=== PATIENT | male | born 1955 | race Caucasian/White ===

== ENCOUNTER → 2023-11-13 13:53 | Outpatient (REF) | payer MEDICARE, OTHER, SELFPAY ==
[2023-11-13 15:01] LABS: ALT (SGPT) 32 U/L (0-50); AST (SGOT) 31 U/L (17-59); Albumin 4.5 g/dl (3.5-5.0); Alkaline Phosphatase 47 U/L (38-126); Direct Bilirubin 0.1 mg/dl (0.0-0.4); Iron 134 ug/dl (49-181); Total Bilirubin 0.8 mg/dl (0.2-1.3); Total Protein 6.6 g/dl (6.3-8.2)
[2023-11-13 15:10] LABS: Percent Saturation 52 % (20-50); Total Iron Binding Capacity 257 ug/dl (261-462)
[2023-11-13 16:06] LABS: Folate 13.6 ng/ml (2.76-20); Vitamin B12 807 pg/ml (239-931)
[2023-11-13 16:56] LABS: % Basophils 0.5 % (0-2); % Eosinophils 1.4 % (0-6); % Immature Granulocytes 0.4 % (0-0.5); % Lymphocytes 31.9 % (20.5-51.1); % Monocytes 9.7 % (1.7-9.3); % Neutrophils 56.1 % (42.2-75.2); Absolute Eosinophils 0.1 10^3/uL (0-0.7); Absolute Lymphocytes 2.6 10^3/uL (1.2-3.4); Absolute Monocytes 0.8 10^3/uL (0.1-0.6); Absolute Neutrophils 4.5 10^3/uL (1.4-6.5); Hematocrit 43.4 % (39.0-52.0); Mean Corp Hgb Conc. 34.6 g/dL (33.0-37.0); Mean Corpuscular Hgb 32.1 pg (27.0-31.0); Mean Corpuscular Volume 92.9 fL (80.0-94.0); Mean Platelet Volume 13.8 fL (7.4-10.4); Nucleated Red Blood Cells % 0 % (-); Red Blood Cell Count 4.67 10^6/uL (4.70-6.10); White Blood Cell Count 8.1 10^3/uL (4.8-10.8)
[2023-11-13 16:57] LABS: Platelet Count 92 10^3/uL (130-400)
[2023-11-16 05:25] LABS: ANA, IgG Reflex to HEp-2 None Detected (None Detected)
== END ==
LOC: REG 13:53
PROVIDERS: ATTENDING PHYSICIAN Nurse Practitioner Adult Health; FAMILY PHYSICIAN Physician Assistant Medical
DX: R53.82 Chronic fatigue, unspecified (principal); D69.6 Thrombocytopenia, unspecified
CPT/HCPCS: 36415; 80076; 82607; 82728; 82746; 83540; 83550; 85025; 86038

== ENCOUNTER → 2023-12-09 10:48 | Outpatient (REF) | payer MEDICARE, OTHER, SELFPAY | LOC: RAD 10:48 | PROVIDERS: ATTENDING PHYSICIAN Nurse Practitioner Adult Health; FAMILY PHYSICIAN Physician Assistant Medical | DX: R53.82 Chronic fatigue, unspecified (principal); D69.6 Thrombocytopenia, unspecified | CPT/HCPCS: 76705 ==

== ENCOUNTER 2024-07-18 19:13 | Inpatient (IN) | payer MEDICARE, OTHER, SELFPAY ==
[2024-07-18 13:15] VITALS: BP 154/81
[2024-07-18 15:35] VITALS: BP 147/89
--- NOTE | 2024-07-18 16:06 | ED.GENMED ---
History of Present Illness
General
Chief Complaint: Swelling
Source: patient
Time Seen by Provider: 07/18/24 15:45
History of Present Illness
History of Present Illness:
69-year-old male presents to the emergency room complaining of pain and swelling in his right leg. Patient states that he has been experiencing some discomfort in this leg for a couple weeks since using a new exercise equipment. Over the past
several days however he has been experiencing significant swelling and discomfort. He denies any chest pain or shortness of breath. Patient states he was told he had venous insufficiency in this leg previously but denies any history of clots. He
denies any surgical procedures to this leg. He did have a knee arthroscopy performed on the left knee. Patient takes medication for high cholesterol but denies any other medical history. He was told he had low platelets at 1 point and had 'a
workup' which showed no significant issues.
Past History
Past History
ED Past Medical History: Hypercholesterolemia
ED Past Surgical History: Orthopedic (Arthroscopic surgery left knee)
Phy Exam
Physical Exam
Physical Exam:
General: Awake, Alert, Oriented X3. No acute distress.
Vitals: unremarkable
Head: Atraumatic
Eyes: Pupils equal, EOMI
Throat: Airway intact, no exudates
Neck: Trachea midline
Lungs: Clear and equal b/l
Heart: Regular rate, no murmurs
Abd: Soft, Nontender, No pulsatile mass
Neuro: Nonfocal
Skin: Warm, dry, no rash
Extremities: Significant swelling and slightly bluish discoloration right lower extremity extending up to the thigh. Swelling is nonpitting. He does have some discomfort to palpation. There are varicosities noted throughout the right lower
extremity. Capillary refill is delayed in the toes. Strong DP and PT pulses are palpable. Left lower extremity appears normal.
Scores
Heart Failure Risk
Heart Failure Risk Score: Not Applicable
Course
Orders/Labs/Results
Orders:
Orders
07/18/24 13:18
US Legs, Right [US Periph Venous LOWER Ext RT] Urgent
Comment:
Reason For Exam: swelling
07/18/24 16:05
CT Angio Abd/Pelvis w/wo IV [CT Abd/pelvis Angio W/wo Iv] Urgent
Comment:
Reason For Exam: venous phase, eval extent of dvt from r leg
07/18/24 16:13
Complete Blood Count/With Diff Urgent
Comprehensive Metabolic Panel Urgent
PTT Urgent
Prothrombin Time Urgent
07/18/24 16:54
Heparin Protocol- PTT Orders As Directed
PTT per Heparin protocol: -Obtain CBC and baseline PTT - if not already collected.
-Obtain PTT 6 hours from start of infusion. Then, every 6 hours until 2 consecutive
PTT's are therapeutic. Then, PTT Daily.
-With each rate change, obtain PTT every 6 hours until 2 consecutive PTT's are
therapeutic. Then, PTT Daily.
Above order entered?: Yes
Notify MD As Directed
Notify physician if: PTT is greater than or equal to 200.
07/18/24 16:59
Heparin 4,000 units IV PRN PRN
Heparin 8,000 units IV PRN PRN
07/18/24 17:00
Heparin 67473 Units/250 ml 25,000 units in 250 ml IV PER PROTOCOL
Weight to be used for heparin protocol in kilograms (kg):: 100.3
Protocol:: DVT/PE
PTT Goal Range to be used:: PTT 73 to 111 seconds
Order type:: Initial
INITIAL Infusion Dose (UNITS/KG/hr) & then follow protocol:: 18 units/kg/hr
Infusion Dose in UNITS/hr & then follow protocol (UNITS/hr):: 1,800
INFUSION RATE in mL/hr & then follow protocol (mL/hr):: 18
For DVT/PE algorithm, re-bolus for low PTT?: Yes
PTT less than or equal to 64 seconds:: Re-bolus 80 units/kg (max 10,000units). Increase by 400 units/hr
(+ 4mL/hr)
PTT 64.1 to 72.9 seconds:: Re-bolus 40 units/kg (max 5,000 units). Increase by 200 units/hr
(+ 2mL/hr)
PTT 73 to 111 seconds:: Target Range. No change in rate.
PTT 111.1 to 130.9 seconds:: Decrease rate by 200 units/hr (- 2 mL/hr)
PTT 131 to 199.9 seconds:: HOLD for 1 hr. Then decrease by 300 units/hr (- 3mL/hr)
PTT greater than or equal to 200 seconds:: HOLD for 2 hrs & Notify Provider. Then decrease by 400 units/hr
(- 4mL/hr)
Lab follow-up:: Each change, PTT q6h until 2 consecutive are therapeutic. Then
PTT daily.
07/18/24 18:13
Admit/Transfer Patient As Directed
Co-Sign Provider:
Level of Care: Inpatient admission
Assign to:: Medical/Surgical
Physician / Group: johnna zambrano
Diagnosis: provoked DVT RLE
Reason for Hospitalization: provoked DVT RLE
Expected length of stay greater than two midnights?: Yes
ELOS- Estimated Length of Stay in days: 4
I certify the patient meets the requirements for IP care: Yes
Code Status As Directed
Resuscitation Status: Full Code
07/18/24 18:17
PRN Pain Medication Management As Directed
May give lesser potent ordered pain med per pt: Yes
preference::
Protocol:: Medication orders for pain may be administered in a
manner that supports deferring to patient preference
when the pt is:
- Requesting an ordered lesser potent pain medication.
Least to most potent pain medications are defined
as: acetaminophen < NSAID < tramadol < opioids
(morphine, oxycodone, hydromorphone).
- Requesting a lesser dose of the same medication IF
ORDERED.
- Requesting a less intrusive route of administration
if both routes are prescribed by the provider (PO <
IV).
07/18/24 23:36
PTT Urgent
07/20/24 06:00
Complete Blood Count/No Diff Q2D
Comment: Notify MD if platelet count is <130,000 or decreases by 50% from baseline
07/22/24 06:00
Complete Blood Count/No Diff Q2D
Comment: Notify MD if platelet count is <130,000 or decreases by 50% from baseline
07/24/24 06:00
Complete Blood Count/No Diff Q2D
Comment: Notify MD if platelet count is <130,000 or decreases by 50% from baseline
07/26/24 06:00
Complete Blood Count/No Diff Q2D
Comment: Notify MD if platelet count is <130,000 or decreases by 50% from baseline
07/28/24 06:00
Complete Blood Count/No Diff Q2D
Comment: Notify MD if platelet count is <130,000 or decreases by 50% from baseline
07/30/24 06:00
Complete Blood Count/No Diff Q2D
Comment: Notify MD if platelet count is <130,000 or decreases by 50% from baseline
08/01/24 06:00
Complete Blood Count/No Diff Q2D
Comment: Notify MD if platelet count is <130,000 or decreases by 50% from baseline
08/03/24 06:00
Complete Blood Count/No Diff Q2D
Comment: Notify MD if platelet count is <130,000 or decreases by 50% from baseline
Abnormal Lab Results
07/18/24
16:13
MCH 31.2 H pg
(27.0-31.0)
Plt Count 76 L 10^3/uL
(130-400)
Absolute Monos (auto) 0.9 H 10^3/uL
(0.1-0.6)
Monocytes % 11.8 H %
(1.7-9.3)
Glucose 108 H mg/dl
(70-99)
Albumin 5.2 H g/dl
(3.5-5.0)
07/18/24 16:13
07/18/24 16:13
Vital Signs
Initial and Last Documented VS:
Initial Vital Signs
Temp Pulse Resp BP Pulse Ox
98.3 F 72 18 154/81 98
07/18/24 13:15 07/18/24 13:15 07/18/24 13:15 07/18/24 13:15 07/18/24 13:15
Last Documented Vital Signs
Temp Pulse Resp BP Pulse Ox
98.2 F 78 18 144/81 98
07/18/24 18:50 07/18/24 18:50 07/18/24 18:50 07/18/24 18:50 07/18/24 18:50
MDM/Problems Addressed
Differential Diagnosis Includes:
DVT, venous insufficiency, cellulitis
MDM/Problems Addressed:
Patient presents with significant swelling, discomfort right lower extremity. No specific injury. Patient has been told he has venous insufficiency of that leg. He does not take any oral anticoagulants. Patient denies any chest pain or shortness
of breath. Ultrasound confirms the presence of lower extremity DVT. Given the extensive nature of the clot burden, the significant swelling and somewhat discoloration of his right lower extremity vascular surgery consultation was obtained. They
recommend a CT venogram which was ordered. They recommend heparin for now pending the rest of his workup. Patient will be admitted to the hospitalist service. Labs will see the count of 76. He does have a history of thrombocytopenia without any
clear cause and this has been present for many years. Given his acute clot it is necessary to provide anticoagulatio with heparin for now.
*Radiology
Radiology exam reviewed: radiology read reviewed
*Pulse Oximetry
Patient hypoxic: no
*Critical Care Note
Total Time (30-74mins, 75-104mins- exclusive of procedures): 33 min
comment:
Critical care statement: A total of 33 minutes of critical care time was provided for this patient. This includes management of unstable vital signs, evaluation of the patient at bedside, reviewing the patient's pertinent medical records, discussion
with consultants, review of old EKGs and review of pertinent medical records. This time with separate from time utilized to perform the aforementioned documented procedures
ED Attending Note
-
Portions of this chart may have been created with voice recognition software.� Occasional wrong word or��sound alike� substitutions may have occurred due to the inherent limitations of voice recognition software.
Discharge Plan
Departure
Patient Disposition: Admit
Date of Disposition: 07/18/24
Time of Disposition: 17:34
Admit to: Med/Surg
Presentation/result/management discussed w/ accepting MD/DO: Hospitalist
Condition: Fair
Discharge Problem:
Acute deep vein thrombosis (DVT) of right lower extremity
Interventions
Interventions:
*Risk Screen - Suicide Last Done: 07/18/24 17:50
*General Assessment Last Done: 07/18/24 13:15
*Neglect/Abuse Screening Last Done: 07/18/24 17:50
*ED COVID-19 Vaccine History Last Done: 07/18/24 18:51
ED- Cardiac Assessment Last Done: 07/18/24 17:47
ED- Pulmonary Assessment Last Done: 07/18/24 17:47
ED-Skin Assessment Last Done: 07/18/24 17:48
--- NOTE | 2024-07-18 16:27 | CON.VAS ---
Addendum entered and electronically signed by Adam Sow III, MD 07/19/24 10:04:
This patient was seen and examined in collaboration with CHAPO Harrington. I agree with the history and physical exam as well as the assessment and plan. I have the following additions:
Active 69-year-old male
Chronic thrombocytopenia, previously evaluated by hematology
Extensive right lower extremity DVT involving popliteal, femoral, common femoral and external iliac veins
Symptomatic with diffuse right lower extremity swelling and discomfort
Discussed options at length with patient including anticoagulation alone versus pharmacologic thrombolysis initiation versus mechanical thrombectomy. I expressed my concerns for elevated bleeding risk with pharmacologic thrombolysis given chronic
thrombocytopenia and if intervention performed would prefer mechanical thrombectomy. The technical aspects of this procedure were discussed with him in detail. The benefits and rationale for this approach were discussed with him in detail.
Operative risks were discussed with him in detail including but not limited to bleeding, access site injury, infection, inability to successfully clear thrombus, distal embolization/pulmonary embolism, chronic lower extremity swelling and the need
for additional procedures. I was also clear with him that regardless of the strategy employed he would need a course of systemic anticoagulation and a repeat evaluation from hematology.
He expressed a clear understanding of our conversation and agrees to proceed with surgery (mechanical venous thrombectomy) as detailed above.
Continue heparin drip. Will plan for OR this afternoon.
Signed:
Adam Sow III, MD
Vascular Surgery
[facility]
Original Note:
Consultation
Consultation Request
Date/Time Consultation Performed: 07/18/24 1620
Requesting Provider: Ag Biswas MD
Performing Provider: Jolie Sousa NP-C for Adam Sow III, MD
Reason for Consultation: RLE swelling
Medical History
-
Chief Complaint: RLE swelling
History of Present Illness:
This is a 69 year old male with significant past medical history of right lower extremity venous reflex and swelling who presents to [facility] ED on 07/18/2024 reporting 4ish weeks of right lower extremity swelling that particularly worsened over
the past week to include swelling in right thigh. He does report going on a trip immediately prior to increased swelling occurring, a roughly [address] to [place]. 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
bike for several hours at a time. He denies pain. Denies prior vascular surgeon evaluation or vascular intervention. He does note endorse seeing our vein clinic around 2011, and was diagnosed with venous reflex but did not complete any treatment
recommendations. Does endorse history of thrombocytopenia for which he states a work up was completed and did not demonstrate a clear indication. He offers no other complaints other than RLE swelling and heaviness. He notes he experiences RLE mild
swelling and fatigue and initially thought increased swelling (that has been occurring over the past month) was related to his venous reflex until it worsened to include his thigh over the past week. US confirmed occlusive thrombus at the common
femoral, femoral, and popliteal veins with nonocclusive thrombus within the peroneal vein.
Past Medical History
Past Medical History: Hypercholesterolemia
Past Surgical History: Orthopedic (Arthroscopic surgery left knee) and Tonsilectomy
Allergies / Home Medications
Allergy/AdvReac Type Severity Reaction Status Date / Time
NKA - No Known Allergies Allergy Unknown Uncoded 07/18/24 13:15
Review of Systems
-
History Source: Patient
Constitutional: Reports No Symptoms
EENT: Reports No Symptoms
Respiratory: Reports No Symptoms
Cardiac: Reports No Symptoms
Vascular: Denies Leg Pain / Claudication
Abdomen/GI: Reports No Symptoms
: Reports No Symptoms
Musculoskeletal: Reports Edema (increased right lower extremity swelling )
Physical Exam
Vital Signs
Temp Pulse Resp BP Pulse Ox
98.3 F 64 20 147/89 100
07/18/24 13:15 07/18/24 15:35 07/18/24 15:35 07/18/24 15:35 07/18/24 15:35
Physical Exam
General: No Apparent Distress and Comfortable
HEENT: Normocephalic, Anicteric and Atraumatic
Respiratory: Non Labored Respirations
Cardiac: Negative JVD
GI: Soft, Non Tender and Non Distended
Musculoskeletal: Edema (+3 RLE edema, non-pitting, full compartments but easily compressible )
Skin: Warm and Dry
Neuro: AO x 3
Pulses: Right Popliteal: +1, Right Dorsalis Pedis: +2 and Right Posterior Tibial: +1
Assessment / Plan
-
Assessment: 69 year old male with occlusive thrombus at the common femoral, femoral, and popliteal veins with nonocclusive thrombus within the peroneal vein of right lower extremity.
Plan:
Initiate heparin infusion for anticoagulation
Recommend CT venogram to eval IVC and iliac for clot, given length of symptom onset unclear if he will be candidate for lysis or mechanical thrombectomy, if clot propagated acutely to iliac or IVC may be a surgical candidate, official surgical plan
pending CT results
Plan reviewed with farm operations manager attending Dr. Adam Sow III
Data Reviewed
-
Ultrasound: Report Reviewed by me, Discussed with Physician and Discussed with Patient
[2024-07-18 16:29] VITALS: BMI 28.4
[2024-07-18 16:48] LABS: INR 0.98; PT 13.3 Sec (11.4-14.6)
[2024-07-18 16:55] LABS: ALT (SGPT) 34 U/L (0-50); AST (SGOT) 36 U/L (17-59); Albumin 5.2 g/dl (3.5-5.0); Alkaline Phosphatase 72 U/L (38-126); Blood Urea Nitrogen 20 mg/dl (9-20); Calcium 10.2 mg/dl (8.4-10.2); Carbon Dioxide 24 mmol/L (22-30); Chloride 105 mmol/L (98-107); Estimated Creatinine Clearance 82 ml/min; Glucose 108 mg/dl (70-99); Potassium 4.4 mmol/L (3.5-5.1); Sodium 139 mmol/L (135-145); Total Bilirubin 0.9 mg/dl (0.2-1.3); Total Protein 7.7 g/dl (6.3-8.2); eGFR > 60.00
[2024-07-18 17:08] LABS: Hematocrit 44.6 % (39.0-52.0); Hemoglobin 15.1 g/dL (13.0-18.0); Mean Corp Hgb Conc. 33.9 g/dL (33.0-37.0); Mean Corpuscular Hgb 31.2 pg (27.0-31.0); Mean Corpuscular Volume 92.1 fL (80.0-94.0); Platelet Count 76 10^3/uL (130-400); Red Blood Cell Count 4.84 10^6/uL (4.70-6.10); White Blood Cell Count 7.7 10^3/uL (4.8-10.8)
[2024-07-18] MEDS: HEPARIN 25000 UNITS/250 ML IV (17:36)
[2024-07-18 17:49] LABS: % Basophils 0.5 % (0-2); % Eosinophils 1.2 % (0-6); % Immature Granulocytes 0.4 % (0-0.5); % Monocytes 11.8 % (1.7-9.3); % Neutrophils 61.1 % (42.2-75.2); Absolute Eosinophils 0.1 10^3/uL (0-0.7); Absolute Lymphocytes 1.9 10^3/uL (1.2-3.4); Absolute Monocytes 0.9 10^3/uL (0.1-0.6); Absolute Neutrophils 4.7 10^3/uL (1.4-6.5); Nucleated Red Blood Cells % 0 % (-)
--- NOTE | 2024-07-18 18:03 | HPS.HSE ---
Family Physician
-
Family Physician: Audra Boss
Chief Complaint
-
Right lower extremity swelling x 4 weeks
History of Present Illness
69-year-old male complaining of right lower extremity swelling over the past 4 weeks that has worsened over the past week including swelling into the right thigh area with purpleish discoloration from the thigh although down to the foot but warm
skin. He reports using a cycling indoor new machine in April and feeling intense calf pain. He then reports on 05/28 he took a a 10-hour drive to [place] . He states he cycles 2 to 3 days a week for 3 hours at a time. He has a history of
venous reflux was seen in vein clinic around 2011 but did not do any treatment. He also reports a history of thrombocytopenia had a workup which did not demonstrate a clear indication. He also drinks 1 bottle of wine and/or champagne daily last
drink was 4 to 10 PM yesterday in the ER he was noted to have an occlusive thrombus at the common femoral, femoral and popliteal veins with nonocclusive thrombus in the peroneal vein. Vascular surgery was made aware of his extensive DVT and
thrombocytopenia they are recommending heparin drip and CT venogram to evaluate how proximal the clot goes to see if candidate for intervention. The patient denies fever, chills, chest pain, palpitations, cough, shortness of breath, abdominal pain,
nausea, vomiting, diarrhea, urinary symptoms. The patient has a past medical history of chronic thrombocytopenia unclear etiology, HLD.
Medical History
Past Medical History
Past Medical History: Reports Other
Additional Past Medical History:
Chronic thrombocytopenia unclear etiology
HLD
Past Surgical History: Reports Other (Left knee meniscus repair)
Social History
Tobacco: Non-smoker
Alcohol: Daily (1 bottle wine or champagne daily drink last evening until 10 PM)
Drug: None
Personal:
Living: With Family
Employment: Retired
Family History
Family History: Not pertinent
Allergies / Home Medications
Allergies reflects when Allergies were last updated in [employer].
Home Medications with original date entered in [employer]
Allergy/Medication List:
Allergies
Allergy/AdvReac Type Severity Reaction Status Date / Time
No Known Allergies Allergy Unverified 07/18/24 16:56
Home Medications
atorvastatin 20 mg tablet (Lipitor) 20 mg PO DAILY 07/18/24
cholecalciferol (vitamin D3) 25 mcg (1,000 unit) tablet (Vitamin D3) 25 mcg PO DAILY 07/18/24
naproxen sodium 220 mg tablet (Aleve) 440 mg PO DAILYPRN PRN mild pain 07/18/24
omega 1-duv-pzb-fish oil 60 mg-90 mg-500 mg capsule (Fish Oil) 1 cap PO DAILY 07/18/24
psyllium husk 0.4 gram capsule (Metamucil) 0.4 g PO DAILYPRN PRN constipation 07/18/24
Review of Systems
-
History Source: Patient
A 12 point ROS was completed and negative except as noted: Yes
Constitutional: Denies Fever or Chills
EENT: Denies Tearing or Runny Nose
Respiratory: Denies Cough or Trouble Breathing
Cardiac: Denies Chest Pain, Diaphoresis, Palpitations or Syncope
Abdomen/GI: Denies Abdominal Pain, Nausea, Vomiting, Diarrhea or Constipated
: Denies Dysuria, Frequency, Flank Pain, Incontinence or Difficulty Voiding
Musculoskeletal: Reports Edema (RLE edema leg to right thigh ); Denies Joint Pain
Skin: Denies Itching or Rash
Neurological: Denies Dizzy, Headache or Weakness
Endocrine: Reports No Symptoms
Hematologic/Lymphatic: Reports No Symptoms
Psych: Reports Calm
Physical Exam
Vital Signs
Vital Signs
Temp Pulse Resp BP Pulse Ox
98.3 F 64 20 147/89 100
07/18/24 13:15 07/18/24 15:35 07/18/24 15:35 07/18/24 15:35 07/18/24 15:35
Physical Exam
General: Comfortable and Conversant; No Pain, Fever or Chills
HEENT: NormoCephalic, Anicteric, Moist mucous membranes, PERRLA, [place] Conjunctivae and No Ptosis
Respiratory: Clear; No Wheezes, Rales or Rhonchi
Cardiac: S1/S2 and Regular Rhythm; No Murmur, Rub or Gallop
Breast: Deferred by me
GI: Soft, Non Tender and Normal Bowel Sounds
Rectal: Deferred by Provider
Genito-urinary: Deferred by me
Musculoskeletal: No Clubbing, No Cyanosis and Other (RLE edema leg to right thigh with purpleish discoloration but warm skin)
Skin: Warm and Dry; No Rash
Neuro: AO x 3, Cranial Nerves Intact and No Sensory Deficits; No Slurred Speech, Facial Droop, Tremors or Sedated
Psych: Calm
Laboratory Results
-
07/18/24 16:13
07/18/24 16:13
Laboratory Results
PT 13.3 Sec (11.4-14.6) 07/18/24 16:13
INR 0.98 07/18/24 16:13
APTT 24.0 Sec (23.4-35.0) 07/18/24 16:13
Total Bilirubin 0.9 mg/dl (0.2-1.3) 07/18/24 16:13
AST 36 U/L (17-59) 07/18/24 16:13
ALT 34 U/L (0-50) 07/18/24 16:13
Alkaline Phosphatase 72 U/L (38-126) 07/18/24 16:13
Data Reviewed
-
CT Scan: Report Reviewed by me
Lab Data: Labs Reviewed by me
Impression/Plan
-
Impression/plan:
Admit to telemetry
#Right lower extremity occlusive DVT common femoral, femoral and popliteal veins with nonocclusive thrombus in the peroneal vein
Plt 76
History of right calf injury April, prolonged car ride 05/28/2024 10 hrs. to [place]
- IV heparin drip
- Vascular surgery aware
- CT venogram negative for extension of clot
- Hold Aleve for 40 mg daily as needed, fish oil
- Follow CBC, CMP
CT venogram:.
1. Venous thrombosis involving the right common femoral and right external iliac veins as described. No thrombosis extends into the common iliac
vein or IVC.
2. No abdominal aortic aneurysm or dissection.
3. No other significant abnormality identified in the abdomen or pelvis within the limits of this exam, as described above.
#Acute on chronic thrombocytopenia unclear etiology since young teen
Patient had outpatient workup of thrombocytopenia of unclear etiology platelets of 92on 11/13/2023 current plt 76
#Alcohol abuse
Patient drinks 1 bottle of wine or champagne daily last drink was yesterday champagne 10 PM
MSAS protocol
-IV thiamine IV folate
#HLD
- Hold current fish oil
Full code
[2024-07-18 18:50] VITALS: BP 144/81
--- NOTE | 2024-07-18 20:10 | W.PN.UPDATE ---
Update Note
Progress Note Update
This is an addendum to the H&P written by Trina Garcia on 07/18/2024.� Patient seen and examined independently with [employer].
69-year-old male past medical history of right lower extremity venous reflux since 2011, chronic thrombocytopenia unclear etiology presenting with 4 weeks of right lower extremity pain and swelling.� He did go on a 10-hour drive to [place] prior to
this and calf injury in April.�
DVT shows extensive DVT within the right leg within the common femoral, femoral and popliteal veins.� Nonocclusive thrombus within the peroneal vein.
Heparin drip for provoked DVT.� Vascular surgery consulted and recommended�CT venogram to determine if lysis or mechanical thrombectomy would be needed.
Alcohol withdrawal protocol.�
[2024-07-18 21:11] VITALS: BP 151/85; BMI 28.1
[2024-07-18 23:15] VITALS: BP 131/80
[2024-07-18] MEDS: THIAMINE INJECTION 200 MG IV (23:44)
[2024-07-19] VITALS (14 sets, daily range): BP systolic 120–142; BP diastolic 70–91
[2024-07-19 00:24] LABS: INR 1.07; PT 14.2 Sec (11.4-14.6)
[2024-07-19 00:25] LABS: APTT 59.4 Sec (23.4-35.0)
[2024-07-19 01:00] LABS: GGTP 38 U/L (15-73); Magnesium 2.1 mg/dl (1.6-2.3); Phosphorus 3.7 mg/dl (2.5-4.5)
[2024-07-19 01:05] LABS: Alcohol None Detected
[2024-07-19 01:07] LABS: B-Hydroxybutyrate 0.34 mmol/L (0.02-0.27)
[2024-07-19] MEDS: HEPARIN 8000 UNITS IV (01:13)
[2024-07-19] MEDS: HEPARIN 25000 UNITS/250 ML IV ×2 (05:51→20:21)
[2024-07-19 08:12] LABS: Hematocrit 42.4 % (39.0-52.0); Hemoglobin 14.2 g/dL (13.0-18.0); Mean Corp Hgb Conc. 33.5 g/dL (33.0-37.0); Mean Corpuscular Hgb 31.4 pg (27.0-31.0); Mean Corpuscular Volume 93.8 fL (80.0-94.0); Mean Platelet Volume 14.2 fL (7.4-10.4); Platelet Count 74 10^3/uL (130-400); Red Blood Cell Count 4.52 10^6/uL (4.70-6.10); Red Cell Dist. Width 13.2 % (11.5-14.5); White Blood Cell Count 8.6 10^3/uL (4.8-10.8)
[2024-07-19] MEDS: VITAMIN D3 (cholecalciferol) 25 MCG PO (08:20)
[2024-07-19] MEDS: FOLVITE 1 MG PO (08:20)
[2024-07-19] MEDS: THIAMINE INJECTION 200 MG IV ×2 (08:21→18:53)
--- NOTE | 2024-07-19 08:37 | W.PN.UPDATE ---
Update Note
Progress Note Update
Patient seen and examined at bedside with Dr. Adam Sow III, reviewed CT venogram results with patient and recommended endovenous mechanical thrombectomy, Dr. Sow does not believe patient is lysis candidate given history of chronic
thrombocytopenia. Dr. Sow reviewed in great detail indication, procedure, postoperative course, and risk for endovenous mechanical thrombectomy with patient. Patient is agreeable to above plan, we will proceed with adding patient to OR scheduled
for this afternoon. Relayed plan to hospitalist via [place] text.
[2024-07-19 08:44] LABS: APTT > 200 Sec (23.4-35.0)
--- NOTE | 2024-07-19 11:18 | W.PN.HOSP.TC ---
Today's Communication/Plan
-
For mechanical thrombectomy today
Continue heparin drip
Will transition to DOAC postprocedure
Assessment / Plan
Assessment / Plan
#Right lower extremity occlusive DVT
-involving common femoral, femoral and popliteal veins with nonocclusive thrombus in the peroneal vein
-CT a/p showing thrombosis in right external iliac vein as well, no involvement of common iliac or IVC
-Currently on heparin drip
-Vascular surgery evaluated and patient to go for mechanical thrombectomy today
#Acute on chronic thrombocytopenia unclear etiology since young teen
-Idiopathic thrombocytopenia, chronic in nature
-Workup has been negative in the past. Patient does not remember of getting any bone marrow biopsy.
#Alcohol use disorder
- Daily 1 bottle of wine/champagne, last drink yesterday evening
-Maintain on MSAS/Ativan/thiamine/folate
#HLD
- Hold current fish oil
Full code
Case discussed with vascular surgery
Total time spent : 52 mins
Anticipated Discharge: 24 - 48 hours
Subjective/Interval History
-
Date of Service: July 19, 2024
Some left leg discomfort
No other issues reported
Objective Data
-
Labs:
Laboratory Results
07/19/24 07/19/24 07/19/24
00:02 06:18 16:00
WBC 8.6
Hgb 14.2
Hct 42.4
Plt Count 74 L
PT 14.2
INR 1.07
APTT 59.4 H > 200 H* Pending
Vital Signs:
Vital Signs
Temp Pulse Resp BP Pulse Ox
97.7 F 56 18 129/78 96
07/19/24 07:00 07/19/24 07:00 07/19/24 07:00 07/19/24 07:00 07/19/24 07:00
I&O
07/18/24 07/19/24 07/20/24
06:59 06:59 06:59
Intake Total 480 / 480
Balance 480 / 480
Review of Systems
-
Respiratory: Reports No Symptoms
Cardiac: Reports No Symptoms
Abdomen/GI: Reports No Symptoms
Physical Exam
-
General: Negative Appears in Distress
HEENT: Negative Oxygen
Musculoskeletal: Edema, Right Lower Extrem
Neuro: Awake, Alert and Oriented
[2024-07-19 12:14] LABS: Urine Albumin Negative (Neg - Trace); Urine Bilirubin Negative (Negative); Urine Character Clear (Clear); Urine Color Yellow; Urine Glucose Negative (Negative); Urine Ketone Negative (Negative); Urine Leukocyte Negative (Negative); Urine Nitrite Negative (Negative); Urine Occult Blood 3+ (Negative); Urine Urobilinogen Negative (Neg - 1+)
[2024-07-19 12:33] LABS: Urine Squamous Cell 0-2 /LPF (Few)
[2024-07-19 12:34] LABS: Amphetamines Negative (Negative); Barbiturates Negative (Negative); Benzodiazepines Negative (Negative); Buprenorphine Negative (Negative); Cocaine Negative (Negative); Marijuana Negative (Negative); Methadone Negative (Negative); Methamphetamines Negative (Negative); Opiates Negative (Negative); Phencyclidine Negative (Negative); Tricyclic Antidepressants Negative (Negative); Urine Bacteria Few (Negative); Urine White Cell 0-2 /HPF (0-5)
--- NOTE | 2024-07-19 15:15 | W.SUR.PREOP ---
Pre-Operative Surgical Note
-
I have examined this patient prior to the performance of the scheduled procedure.
The patient's condition is unchanged from the time of the current History and
Physical and the patient is able to undergo the scheduled procedure.
--- NOTE | 2024-07-19 15:43 | CM ---
Patient off the floor to OR. Spoke w/ patient's to complete initial assessment. Patient admitted for right lower extremity swelling x 4 weeks.
Patient resides w/ spouse in [facility]- 4 steps to enter. Patient is independent w/ ambulating, no device required. Independent w/ ADLs. No DME identified. No SNF/HC hx reported from spouse.
Address, point of contact and insurance verified
PCP: Audra Boss
Pharmacy: [facility]
Therapy will evaluate when medically appropriate
CM consulted for substance abuse counseling. Will discuss w/ patient once able to.
Plan: CM will cont to follow for d/c planning
[2024-07-19 16:38] LABS: ACT-LR - POC 285 Seconds (116-155)
--- NOTE | 2024-07-19 18:40 | PTCARENOTE ---
Pt received s/p mechanical thrombectomy. AAOx3. SB on tele, HR 57. BP 133/83. RLE hellen wrapped. R dorsalis pedis pulse present via Doppler. Neurovascular checks WDL. Pt on bedrest until 2339. Educated to keep RLE straight until 2339. Pt verbalized
understanding. Resting in bed, call forte in reach.
[2024-07-19] MEDS: NSS 1000 IV (18:54)
--- NOTE | 2024-07-19 18:59 | OR.RPT ---
Operative Report
Operative Report
Date of Operation: 07/19/2024
Pre Op Diagnosis: Extensive occlusive right lower extremity DVT involving the right external iliac vein, common femoral vein, femoral vein and popliteal vein
Post Op Diagnosis: Extensive occlusive right lower extremity DVT involving the right external iliac vein, common femoral vein, femoral vein and popliteal vein
Procedure:
1. Percutaneous transluminal mechanical thrombectomy using Inari ClotTriever device (right external iliac vein, common femoral vein, femoral vein and popliteal vein)
2. Venography right lower extremity
3. Venography inferior vena cava
4. Introduce wire/catheter to inferior vena cava, superior vena cava and brachiocephalic vein
5. Transluminal balloon angioplasty, right femoral vein
6. Transluminal balloon angioplasty, right popliteal vein
7. Ultrasound-guided percutaneous access to the right popliteal vein
Surgeon: Adam Sow III, MD
Business Development Specialist: Abdiaziz Curry MD PGY1
Anesthesia: Sedation/local
Complications: None
Estimated Blood Loss: 50 cc
History and Indications for Procedure: 69-year-old active male with acute right lower extremity pain and swelling. Duplex imaging demonstrated extensive occlusive thrombus involving the common femoral vein, femoral vein and popliteal vein of the
right lower extremity. CT venography demonstrated thrombus within the right external iliac vein. Patient has no known history of DVT. Chronic history of thrombocytopenia. He was brought to the operating room for mechanical venous thrombectomy of
the right lower extremity.
Procedure in Detail: Miah Boo was brought to the operating room and placed prone on the operating table. After adequate induction of anesthesia his right popliteal fossa was prepped and draped in usual sterile fashion. A timeout procedure
was performed with the nursing and anesthesia staff confirming the patient's identity as well as the nature and laterality of the procedure.
Under ultrasound guidance we identified the right popliteal vein. This was distended and clearly filled with thrombus. Local anesthesia was infiltrated into the puncture site. A micropuncture needle was used with ultrasound guidance to access the
right popliteal vein. We then upsized to a 5 [place]ib[place] sheath over a Bentson wire. Initial venography was performed through the 5 [place]ib[place]ian sheath demonstrating occlusive thrombus within the popliteal and femoral vein. The patient was systemically
heparinized. Using a glide catheter and stiff Glidewire we were able to navigate through the occluded popliteal vein and femoral vein. This was quite difficult to advance the wire and catheter through the right thigh and several areas of
significant resistance and occlusion were encountered. We continued to advance the wire and catheter more easily through the right common femoral vein and external iliac vein. The catheter was advanced to the pelvis and venography of the iliac
veins and inferior vena cava was performed. The right common iliac vein was patent with no filling defects identified. The inferior vena cava was widely patent with no filling defects identified.
A 1 cm floppy tip Amplatz wire was then advanced carefully through the inferior vena cava, into the superior vena cava and brachiocephalic vein. The wire position was marked on the table. We then used an 8 mm angioplasty balloon to predilate the
areas of significant resistance in the right femoral vein and popliteal vein to facilitate delivery of the ClotTriever device. The balloon profiled nicely with multiple inflations performed. Over the Amplatz wire the 16 [place] ClotTriever sheath
was placed. The Inari ClotTriever device was now advanced over the Amplatz wire and into the inferior vena cava. Mechanical thrombectomy was then performed on the right iliac venous system, common femoral vein, femoral vein and popliteal vein.
Multiple passes were made with the device and returned significant amounts of both acute and chronic appearing thrombus. Areas of resistance while withdrawing the device were noted on fluoroscopy. Subsequent venography after multiple passes with
the ClotTriever device demonstrated significant improvement. Areas of chronic wall adherent thrombus and stenosis were identified in the femoral vein and popliteal vein. I then treated the entire length of femoral vein and popliteal vein to the
access site with a 10 mm angioplasty balloon. This was then followed by several additional passes with the ClotTriever device and returned additional chronic appearing thrombus. The ClotTriever device was passed an additional time and no thrombus
was returned. Subsequent venography demonstrated significant improvement with flow through the popliteal vein and femoral vein. Some areas of residual stenosis remained in the femoral vein and popliteal vein and these were treated with a 12 mm
angioplasty balloon inflated to subnominal pressure.
Completion venography demonstrated significant improvement with a now patent popliteal vein, femoral vein, common femoral vein, right external iliac vein, right common iliac vein and inferior vena cava.
Satisfied with this result we then concluded the procedure. The wire and 16 Djiboutian sheath were removed from the right popliteal vein access site. An interrupted silk suture was placed in the skin and subcutaneous tissue at the access site. Direct
manual pressure was held over the puncture site for 10 minutes. Hemostasis was achieved. A sterile dressing was applied.
The patient's right lower extremity was Yobany wrapped from the toes to the proximal thigh. The patient tolerated the procedure well and was taken to the recovery room in good condition.
Attestation: I was present and responsible for the entire procedure
Signed:
Adam Sow III, MD
Vascular Surgery
[facility]
[2024-07-20] MEDS: THIAMINE INJECTION 200 MG IV ×2 (00:03→09:03)
[2024-07-20 00:56] LABS: APTT > 200 Sec (23.4-35.0)
[2024-07-20 02:57] VITALS: BP 106/64
[2024-07-20 07:00] VITALS: BP 135/81
[2024-07-20 08:27] LABS: Hematocrit 40.8 % (39.0-52.0); Hemoglobin 13.9 g/dL (13.0-18.0); Mean Corp Hgb Conc. 34.1 g/dL (33.0-37.0); Mean Corpuscular Hgb 31.5 pg (27.0-31.0); Mean Corpuscular Volume 92.5 fL (80.0-94.0); Mean Platelet Volume 14.3 fL (7.4-10.4); Platelet Count 81 10^3/uL (130-400); Red Blood Cell Count 4.41 10^6/uL (4.70-6.10); Red Cell Dist. Width 12.5 % (11.5-14.5); White Blood Cell Count 11.6 10^3/uL (4.8-10.8)
[2024-07-20 08:42] VITALS: BP 131/55; PULSE 65; O2SAT 97
[2024-07-20] MEDS: VITAMIN D3 (cholecalciferol) 25 MCG PO (09:03)
[2024-07-20] MEDS: FOLVITE 1 MG PO (09:03)
[2024-07-20] MEDS: HEPARIN 4000 UNITS IV (09:04)
--- NOTE | 2024-07-20 09:45 | W.PN.VS ---
Today's Communication / Plan
-
Discussed with Dr. Sow
Assessment/Plan
-
Postop day 1 right lower extremity venous and mechanical thrombectomy
Plan:
- Continue compression
- Okay to switch to oral anticoagulation
- Okay for discharge from vascular standpoint, I will add follow-up appointment to the chart
Subjective Data
-
Date of Service: July 20, 2024
Patient seen at bedside this a.m. Patient offers no complaints at this time. No events overnight.
Objective Data
-
Vital Signs
Temp Pulse Resp BP Pulse Ox
98.0 F 63 18 106/64 95
07/20/24 02:57 07/20/24 02:57 07/20/24 02:57 07/20/24 02:57 07/20/24 02:57
Intake and Output
07/19/24 07/20/24 07/21/24
06:59 06:59 06:59
Intake Total 480 / 480 75 / 75
Output Total 200 / 200
Balance 480 / 480 -125 / -125
Intake:
Oral fluids 480 / 480 0 / 0
IV fluids (Total) 75 / 75
normosol 75 / 75
Output:
Urine, Sow 200 / 200
Urine, Voided 0 / 0
Other:
Number of approximated MODERATE 2
amounts of urine
Number of approximated LARGE 1
amounts of urine
Lab Results
07/20/24 06:55
07/18/24 16:13
Calcium 10.2 mg/dl (8.4-10.2) 07/18/24 16:13
Phosphorus 3.7 mg/dl (2.5-4.5) 07/19/24 00:02
Magnesium 2.1 mg/dl (1.6-2.3) 07/19/24 00:02
Total Bilirubin 0.9 mg/dl (0.2-1.3) 07/18/24 16:13
AST 36 U/L (17-59) 07/18/24 16:13
ALT 34 U/L (0-50) 07/18/24 16:13
Alkaline Phosphatase 72 U/L (38-126) 07/18/24 16:13
Total Protein 7.7 g/dl (6.3-8.2) 07/18/24 16:13
Albumin 5.2 g/dl (3.5-5.0) H 07/18/24 16:13
Physical Exam
-
AAO x 3
No tachypnea on room air
No tachycardia
Abdomen soft
Right lower extremity all soft, no drainage or hematoma noted
+2 DP and PT pulses
Swelling significantly reduced
--- NOTE | 2024-07-20 10:21 | CM ---
Per hospitalist, patient is for d/c today. Will d/c on Eliquis and need Eliquis coupon provided.
Met w/ patient bedside, aware of d/c today. Eliquis coupon provided. IMM verbally reviewed, patient given copy, copy placed on chart
Spouse will transport home
Therapy assessed- no skilled needs
Plan: Home; no needs
[2024-07-20 11:00] VITALS: BP 130/75
[2024-07-20] MEDS: ELIQUIS 10 MG PO (11:14)
[2024-07-20 11:35] VITALS: BP 130/75
--- NOTE | 2024-07-20 15:22 | W.PN.HOSP.TC ---
Today's Communication/Plan
-
d/c home
Assessment / Plan
Assessment / Plan
#Right lower extremity occlusive DVT
-involving common femoral, femoral and popliteal veins with nonocclusive thrombus in the peroneal vein
-CT a/p showing thrombosis in right external iliac vein as well, no involvement of common iliac or IVC
- Status post successful mechanical thrombectomy yesterday
- Patient to be switched to oral Eliquis therapy at discharge
- Vascular surgery recommended follow-up with hematology post discharge
#Acute on chronic thrombocytopenia unclear etiology since young teen
-Idiopathic thrombocytopenia, chronic in nature
-Workup has been negative in the past. Patient does not remember of getting any bone marrow biopsy.
#Alcohol use disorder
- Daily 1 bottle of wine/champagne, last drink yesterday evening
-Maintain on MSAS/Ativan/thiamine/folate
#HLD
- Hold current fish oil
Full code
More than 30 minutes spent in discharge including
Final examination of the patient
Summarizing hospital stay
Instructions for continuing care to all relevant caregivers
Preparation of discharge records, prescriptions, and referral forms
Total time spent (in minutes): 39 mins
Anticipated Discharge: Today
Subjective/Interval History
-
Date of Service: July 20, 2024
Resting comfortably in bed
No acute issues reported overnight
Objective Data
-
Labs:
Laboratory Results
07/20/24 07/20/24 07/20/24
06:55 07:55 15:00
WBC 11.6 H
Hgb 13.9
Hct 40.8
Plt Count 81 L
APTT 71.0 H Pending
Vital Signs:
Vital Signs
Temp Pulse Resp BP Pulse Ox
98.6 F 61 21 130/75 99
07/20/24 11:00 07/20/24 11:00 07/20/24 11:00 07/20/24 11:00 07/20/24 11:00
I&O
07/19/24 07/20/24 07/21/24
06:59 06:59 06:59
Intake Total 480 / 480 75 / 75
Output Total 200 / 200
Balance 480 / 480 -125 / -125
Review of Systems
-
Respiratory: Reports No Symptoms
Cardiac: Reports No Symptoms
Abdomen/GI: Reports No Symptoms
Physical Exam
-
General: Negative Appears in Distress
HEENT: Negative Oxygen
Musculoskeletal: Edema, Right Lower Extrem
Neuro: Awake, Alert and Oriented
--- NOTE | 2024-07-20 16:46 | W.DCSUMMARY ---
Discharge Summary
Discharge Data
Date of Admission: 07/18/24
Date of Discharge: 07/20/24
-
Pending Results: No
Hospital Course
Discharging Physician : Dr Avi Leahy
Disposition : To home
Primary care physician : Dr Audra Boss
Principal Discharge diagnosis :
Right lower extremity deep venous thrombosis
Chronic Discharge diagnosis :
Chronic thrombocytopenia
Alcohol use disorder
Hyperlipidemia
Hospital Course :
Patient is a 69-year-old male with no mentioned past medical history came to ER with new onset of right leg swelling and pain. Initial symptoms started few days back and patient was attributing this to using a new exercise equipment. Although
symptoms continue getting worse and came to ER for further evaluation. Venous Doppler done in ER showed extensive clotting involving external iliac vein common femoral and popliteal vein. Patient was started on IV heparin drip and vascular surgery
was involved in care for further evaluation. A CT venogram was done which did not show any proximal iliac vasculature or IVC blood clot. Vascular surgery recommended for patient to undergo thrombectomy which was successfully done on July 19.
Postprocedure patient was monitored in the hospital for the night and following day was discharged home with transition to oral Eliquis therapy. Patient will require to follow-up with hematology in the office for further evaluation of unprovoked
deep venous thrombosis.
Important imaging findings :
None
Procedure findings :
None
Discharge Plan
-
Patient Disposition: Home (Routine Discharge)
Discharge Diagnosis/Procedures: Right lower leg venous thrombus s/p mechanical thrombectomy
Condition: Fair
Diet: Regular
Activity: As tolerated
Driving Restrictions: No driving for 24 hours
Bathing Restrictions: OK to Shower
Stand Alone Forms: DC Instr - Vascular OR
Referrals:
[facility], [Active] -
Audra Boss PA [Family Provider] - in one week
Lucy Peres CRNP [Specified Professional Personl] - 08/01/24 2:00 pm (Vascular surgery office follow-up)
Prescriptions:
New
Eliquis 5 mg tablet
See Rx Instructions .ROUTE .COMPLEX Qty: 74 0RF
Rx Instructions:
1st month supply
Take 2 tab twice/daily x7 Days Then
Take 1 tab twice/daily for maintenance
Eliquis 5 mg tablet
5 mg PO BID Qty: 60 1RF
Rx Instructions:
2nd and 3rd month supply
Continued
atorvastatin [Lipitor] 20 mg Tablet
20 mg PO DAILY
cholecalciferol (vitamin D3) [Vitamin D3] 25 mcg (1,000 unit) Tablet
25 mcg PO DAILY
omega 5-ssa-izi-fish oil [Fish Oil] 60-90-500 mg Capsule
1 cap PO DAILY
psyllium husk [Metamucil] 0.4 gram Capsule
0.4 g PO DAILYPRN PRN (Reason: constipation)
Nasacort nasal spray syringe
intranasal DAILYPRN PRN (Reason: pt uses PRN @ home)
Discontinued
naproxen sodium [Aleve] 220 mg Tablet
440 mg PO DAILYPRN PRN (Reason: mild pain)
Discharge Orders:
Discharge Patient (As Directed); Ordered 07/20/24
Ordered By: Avi Leahy
Discharge Date and Time
Discharge Date/Time: 07/20/24 15:53
Print Language: PERSIAN
== END 2024-07-20 15:53 | disposition home or self-care (01) | DRG 271 ==
LOC: 4 WEST ACU 19:13
PROVIDERS: Clinical Nurse Specialist Family Health; Nurse Practitioner Acute Care; ADMITTING PHYSICIAN Hospitalist; ATTENDING PHYSICIAN Hospitalist; EMERGENCY PHYSICIAN Emergency Medicine; FAMILY PHYSICIAN Physician Assistant Medical; OTHER PHYSICIAN Surgery Vascular Surgery
PROC: 06CF3ZZ Extirpation of Matter from Right External Iliac Vein, Percutaneous Approach (ICD-10-PCS; 2024-07-19)
PROC: 067Y3ZZ Dilation of Lower Vein, Percutaneous Approach (ICD-10-PCS; 2024-07-19)
PROC: 06CM3ZZ Extirpation of Matter from Right Femoral Vein, Percutaneous Approach (ICD-10-PCS; 2024-07-19)
PROC: B5191ZZ Fluoroscopy of Inferior Vena Cava using Low Osmolar Contrast (ICD-10-PCS; 2024-07-19)
PROC: 067M3ZZ Dilation of Right Femoral Vein, Percutaneous Approach (ICD-10-PCS; 2024-07-19)
PROC: 06CY3ZZ Extirpation of Matter from Lower Vein, Percutaneous Approach (ICD-10-PCS; 2024-07-19)
PROC: B51B1ZZ Fluoroscopy of Right Lower Extremity Veins using Low Osmolar Contrast (ICD-10-PCS; 2024-07-19)
DX: I82.421 Acute embolism and thrombosis of right iliac vein (principal); D69.3 Immune thrombocytopenic purpura; D69.6 Thrombocytopenia, unspecified; F10.10 Alcohol abuse, uncomplicated; E78.00 Pure hypercholesterolemia, unspecified; I82.411 Acute embolism and thrombosis of right femoral vein; Z79.01 Long term (current) use of anticoagulants; I82.431 Acute embolism and thrombosis of right popliteal vein
CPT/HCPCS: 36010; 36012; 37248; 37249; 74174; 75820; 75825; 80053; 80306; 81003; 81015; 82010; 82077; 82977; 83735; 84100; 85025; 85027; 85610; 85730; 93971; 97161; 99291; C1725; C1757; C1769; C1894; Q9967

== ENCOUNTER → 2024-08-10 10:13 | Outpatient (REF) | payer MEDICARE, OTHER, SELFPAY | LOC: RAD 10:13 | PROVIDERS: ATTENDING PHYSICIAN Registered Nurse; FAMILY PHYSICIAN Physician Assistant Medical | DX: I82.421 Acute embolism and thrombosis of right iliac vein (principal) | CPT/HCPCS: 93971; 93978 ==

== ENCOUNTER → 2024-08-25 09:19 | Outpatient (REF) | payer MEDICARE, OTHER, SELFPAY ==
[2024-08-25 10:11] LABS: % Basophils 0.5 % (0-2); % Eosinophils 2.1 % (0-6); % Immature Granulocytes 0.2 % (0-0.5); % Lymphocytes 37.5 % (20.5-51.1); % Monocytes 11.7 % (1.7-9.3); Absolute Eosinophils 0.1 10^3/uL (0-0.7); Absolute Lymphocytes 2.1 10^3/uL (1.2-3.4); Absolute Monocytes 0.7 10^3/uL (0.1-0.6); Absolute Neutrophils 2.7 10^3/uL (1.4-6.5); Hematocrit 45.9 % (39.0-52.0); Hemoglobin 15.3 g/dL (13.0-18.0); Mean Corp Hgb Conc. 33.3 g/dL (33.0-37.0); Mean Corpuscular Hgb 30.8 pg (27.0-31.0); Mean Corpuscular Volume 92.5 fL (80.0-94.0); Mean Platelet Volume 13.2 fL (7.4-10.4); Nucleated Red Blood Cells % 0 % (-); Platelet Count 100 10^3/uL (130-400); Red Blood Cell Count 4.96 10^6/uL (4.70-6.10); Red Cell Dist. Width 12.2 % (11.5-14.5); White Blood Cell Count 5.7 10^3/uL (4.8-10.8)
[2024-08-27 09:00] LABS: Cardiolipin IgA Antibody <10 APL (<=11); Cardiolipin IgM Antibody 17 MPL (<=12); Cardiolipin Igg Antibody <10 GPL (<=14)
[2024-08-27 09:19] LABS: Beta-2-Glycoprotein I Ab. IgG <10 SGU (<=20); Beta-2-Glycoprotein I Ab. IgM <10 SMU (<=20)
== END ==
LOC: REG 09:19
PROVIDERS: ATTENDING PHYSICIAN Internal Medicine Hematology & Oncology; FAMILY PHYSICIAN Physician Assistant Medical
DX: R53.82 Chronic fatigue, unspecified (principal); D69.6 Thrombocytopenia, unspecified; I82.491 Acute embolism and thrombosis of other specified deep vein of right lower extremity
CPT/HCPCS: 36415; 81240; 81241; 85025; 85610; 85613; 85730; 86146; 86147

== ENCOUNTER → 2024-12-28 10:03 | Outpatient (REF) | payer MEDICARE, OTHER, SELFPAY | LOC: HWRAD 10:03 | PROVIDERS: ATTENDING PHYSICIAN Internal Medicine Hematology & Oncology; FAMILY PHYSICIAN Student in an Organized Health Care Education/Training Program | DX: R53.82 Chronic fatigue, unspecified (principal); D69.6 Thrombocytopenia, unspecified; I82.491 Acute embolism and thrombosis of other specified deep vein of right lower extremity | CPT/HCPCS: 93970 ==